=== PATIENT | male | born 1945 | race Caucasian/White ===

== ENCOUNTER 2020-07-31 05:16 | Inpatient (IN) | payer MEDICARE, OTHER ==
[~2020-07-31] VITALS: Ht 175.3 cm; Wt 104.3 kg
[~2020-07-31 05:16] MED LIST: LEVO50TA11 PO; TERA10CA4 PO
[2020-07-31] MEDS ORDERED: ONDANSETRON 4MG INJ ONE (05:27)
[2020-07-31] MEDS ORDERED: MORPHINE 4 MG SYG ONE (05:27)
[2020-07-31 05:55] LABS: BASOPHILS % (AUTO) 0.4 % (0.0-5.0); LYMPHOCYTES % (AUTO) 16.9 % (21.0-51.0); MEAN CORPUSCULAR HEMOGLOBIN 31.7 pg (27.0-33.0); MEAN CORPUSCULAR HGB CONC 35.1 g/dL (32.0-36.0); MEAN CORPUSCULAR VOLUME 90.2 fL (79-99); NEUTROPHILS % (AUTO) 73.2 % (40.0-77.0); PLATELET COUNT (AUTO) 166 K/uL (130-400); RED BLOOD CELL COUNT(AUTO) 5.21 MIL/uL (4.50-6.20); RED CELL DISTRIBUTION WIDTH 11.9 % (11.0-15.5); WHITE BLOOD COUNT (AUTO) 10.7 K/uL (4.8-10.8)
[2020-07-31 06:05] LABS: CREATININE 1.1 mg/dL (0.5-1.5); POTASSIUM 3.6 mmol/L (3.5-5.1)
[2020-07-31] MEDS ORDERED: HYDROMORPHONE 1 MG INJ ONE (06:06)
[2020-07-31 06:10] LABS: ALBUMIN 4.2 g/dL (3.5-5.0); BILIRUBIN,TOTAL 1.3 mg/dL (0.2-1.0)
[2020-07-31 06:17] LABS: INR 1.14 (0.85-1.15); PARTIAL THROMBOPLASTIN TIME 22.1 SEC (26.3-35.5); PROTHROMBIN TIME 11.8 SEC (9.6-11.6)
[2020-07-31] MEDS ORDERED: FAMOTIDINE 20MG VIAL IV ONE (09:25)
[2020-07-31] MEDS ORDERED: PROCHLORPERAZINE 10MG/2ML INJ ONE (09:40)
[2020-07-31 12:15] VITALS: BP_SYST 118; BP_SYST 135; BP_DIAS 48; BP_DIAS 76
[2020-07-31] MEDS: LACTATED RINGERS 1000ML 1,000 ML IV SCH ×3 (15:00→23:45)
[2020-07-31 16:32] VITALS: BP 135/48
[2020-07-31] MEDS: HYDROMORPHONE 1 MG INJ IVP PRN ×2 (18:36→22:45)
[2020-07-31 20:18] VITALS: BP 136/68
[2020-07-31] MEDS: FAMOTIDINE 20MG VIAL IV SCH (20:53)
[2020-07-31 23:26] VITALS: BP 140/76
[2020-08-01] MEDS: ONDANSETRON 4MG INJ IVP PRN (01:41)
[2020-08-01] MEDS ORDERED: HYDROMORPHONE 1 MG INJ IVP PRN (02:15)
[2020-08-01] MEDS ORDERED: KETOROLAC 30MG VIAL (30MG/ML) ONE (02:16)
[2020-08-01] MEDS: KETOROLAC 30MG VIAL (30MG/ML) IV SCH ×4 (02:22→20:43)
[2020-08-01 02:51] LABS: APPEARANCE,URINE Clear (CLEAR); BILIRUBIN,URINE Negative (NEGATIVE); COLOR,URINE Dark Yellow (YELLOW); GLUCOSE, URINE (UA) Negative (NEGATIVE); KETONES,URINE 15 mg/dL (NEGATIVE); LEUKOCYTE ESTERASE ,URINE Negative (NEGATIVE); NITRATE,URINE Negative (NEGATIVE); OCCULT BLOOD,URINE Small (NEGATIVE); PROTEIN,URINE Negative (NEGATIVE)
[2020-08-01 03:09] LABS: BACTERIA,URINE None Seen /HPF (None Seen); MUCUS,URINE Few LPF (None Seen); RBC,URINE 0-1 /HPF (0-1); SQUAMOUS EPITHELIAL CELL,UR Rare /HPF (0-2); WBC,URINE None Seen /HPF (0-1)
[2020-08-01 04:02] VITALS: BP 132/74
[2020-08-01] MEDS: LACTATED RINGERS 1000ML 1,000 ML IV SCH ×2 (04:06→17:44)
[2020-08-01 08:05] VITALS: BP 149/79
[2020-08-01] MEDS: FAMOTIDINE 20MG VIAL IV SCH ×2 (09:46→19:48)
[2020-08-01 11:32] VITALS: BP 124/64
[2020-08-01 16:55] VITALS: BP 131/69
[2020-08-01 20:05] VITALS: BP 122/65
[2020-08-01] MEDS ORDERED: MAGNESIUM 2GM PREMIX 50ML 50 ML IV PRN (21:00)
[2020-08-01] MEDS ORDERED: LIDOCAINE HCL-MPF 1% 2ML VIAL IV PRN (21:00)
[2020-08-01] MEDS ORDERED: POTASSIUM CHLORIDE 20MEQ/100ML 100 ML IV PRN (21:00)
[2020-08-01 23:39] VITALS: BP 131/65
[2020-08-02 03:52] VITALS: BP 140/72
[2020-08-02] MEDS: KETOROLAC 15MG/ML VIAL (15MG/ML) IV PRN ×2 (04:16→19:00)
[2020-08-02] MEDS: LACTATED RINGERS 1000ML 1,000 ML IV SCH ×2 (05:15→19:49)
[2020-08-02 05:41] LABS: HEMATOCRIT 46.8 % (42-54); MEAN CORPUSCULAR HGB CONC 34.8 g/dL (32.0-36.0); MEAN CORPUSCULAR VOLUME 91.9 fL (79-99); RED BLOOD CELL COUNT(AUTO) 5.09 MIL/uL (4.50-6.20); RED CELL DISTRIBUTION WIDTH 11.9 % (11.0-15.5)
[2020-08-02 05:47] LABS: POTASSIUM 4.1 mmol/L (3.5-5.1)
[2020-08-02 07:30] VITALS: BP 139/77
[2020-08-02] MEDS: FAMOTIDINE 20MG VIAL IV SCH ×2 (08:02→20:03)
[2020-08-02 11:00] VITALS: BP 134/73
[2020-08-02 16:00] VITALS: BP 137/85
[2020-08-02 19:00] VITALS: BP 130/71
[2020-08-03] VITALS: BP 129/71
[2020-08-03 04:00] VITALS: BP 137/77
[2020-08-03] MEDS ORDERED: METOCLOPRAMIDE 10 MG/2 ML VIAL ONE (05:38)
[2020-08-03] MEDS: LACTATED RINGERS 1000ML 1,000 ML IV SCH ×3 (05:42→20:09)
[2020-08-03] MEDS: METOCLOPRAMIDE 10 MG/2 ML VIAL IVP SCH ×3 (06:08→18:35)
[2020-08-03] MEDS: KETOROLAC 15MG/ML VIAL (15MG/ML) IV PRN ×2 (07:15→18:33)
[2020-08-03] MEDS: FAMOTIDINE 20MG VIAL IV SCH ×2 (07:15→20:09)
[2020-08-03] MEDS: ONDANSETRON 4MG INJ IVP PRN (07:15)
[2020-08-03 08:15] VITALS: BP 133/76
[2020-08-03 12:00] VITALS: BP 130/73
[2020-08-03] MEDS ORDERED: DIATR MEGLU/DIATRIZOATE SODIUM 30 ML BOTTLE ONE (15:06)
[2020-08-03] MEDS ORDERED: IOHEXOL 350 MG/ML 100ML INFUS..BTL IV ONE (16:27)
[2020-08-03 16:44] VITALS: BP 155/78
[2020-08-03 19:26] VITALS: BP 123/70
[2020-08-04] VITALS (28 sets, daily range): BP systolic 125–157; BP diastolic 65–84
[2020-08-04 05:18] LABS: BASOPHILS % (AUTO) 0.4 % (0.0-5.0); EOSINOPHILS % (AUTO) 3.3 % (0.0-8.0); HEMATOCRIT 44.4 % (42-54); LYMPHOCYTES % (AUTO) 8.4 % (21.0-51.0); MEAN CORPUSCULAR HEMOGLOBIN 30.3 pg (27.0-33.0); MEAN CORPUSCULAR HGB CONC 33.3 g/dL (32.0-36.0); MONOCYTES % (AUTO) 27.5 % (3.0-13.0); NEUTROPHILS % (AUTO) 60.2 % (40.0-77.0); PLATELET COUNT (AUTO) 170 K/uL (130-400); RED BLOOD CELL COUNT(AUTO) 4.88 MIL/uL (4.50-6.20); RED CELL DISTRIBUTION WIDTH 11.9 % (11.0-15.5); WHITE BLOOD COUNT (AUTO) 4.5 K/uL (4.8-10.8)
[2020-08-04 05:27] LABS: POTASSIUM 3.7 mmol/L (3.5-5.1)
[2020-08-04] MEDS: METOCLOPRAMIDE 10 MG/2 ML VIAL IVP SCH ×3 (06:01→17:00)
[2020-08-04] MEDS ORDERED: M.V.I. IV [ADULT] 10 ML in CLINIMIX-E4.25%AA/D5+LYT2000ML 2,000 ML IV SCH ×2 (09:00→20:15)
[2020-08-04] MEDS: FAMOTIDINE 20MG VIAL IV SCH ×2 (09:42→22:27)
[2020-08-04] MEDS: LACTATED RINGERS 1000ML 1,000 ML IV SCH ×2 (12:20→23:53)
[2020-08-04] MEDS ORDERED: LIDOCAINE PF 100MG/5ML (2%) SYRINGE 5ML ONE (15:37)
[2020-08-04] MEDS ORDERED: SUCCINYLCHOLINE CHLORIDE 20 MG/ML 10 ML VIAL ONE (15:37)
[2020-08-04] MEDS ORDERED: ONDANSETRON 4MG INJ ONE (15:38)
[2020-08-04] MEDS ORDERED: PROPOFOL 10 MG/ML 20ML VIAL IV ONE (15:39)
[2020-08-04] MEDS ORDERED: MIDAZOLAM HCL 1 MG/ML 2ML VIAL ONE (15:39)
[2020-08-04] MEDS ORDERED: ROCURONIUM 10MG/1ML SYR 10 MG/ML ML ONE ×2 (15:39→16:24)
[2020-08-04] MEDS: CEFOXITIN SODIUM 2 GM VIAL ONE ×2 (15:44→16:30)
[2020-08-04] MEDS ORDERED: KETAMINE 50MG/ML SYRINGE 50 MG/ML DISP.SYRIN IV ONE (15:59)
[2020-08-04] MEDS ORDERED: FENTANYL CITRATE PF 50 MCG/1 ML 2ML VIAL ONE (16:45)
[2020-08-04] MEDS ORDERED: BUPIVACAINE/PF 0.5% 30ML VIAL ONE (16:55)
[2020-08-04] MEDS ORDERED: SUGAMMADEX SODIUM 200 MG/2 ML VIAL IV ONE (16:58)
[2020-08-04] MEDS ORDERED: MEPERIDINE-PF 25 MG/ML SYG ONE ×2 (17:24→17:36)
[2020-08-04] MEDS: FAT EMULSIONS 20% 250ML 250 ML IV SCH (22:20)
[2020-08-04] MEDS: KETOROLAC 15MG/ML VIAL (15MG/ML) IV PRN (22:20)
[2020-08-05] VITALS: BP 144/72
[2020-08-05 04:00] VITALS: BP 131/76
[2020-08-05 05:16] LABS: HEMATOCRIT 41.8 % (42-54); MEAN CORPUSCULAR HEMOGLOBIN 30.6 pg (27.0-33.0); MEAN CORPUSCULAR HGB CONC 33.5 g/dL (32.0-36.0); MEAN CORPUSCULAR VOLUME 91.5 fL (79-99); RED BLOOD CELL COUNT(AUTO) 4.57 MIL/uL (4.50-6.20); RED CELL DISTRIBUTION WIDTH 11.9 % (11.0-15.5); WHITE BLOOD COUNT (AUTO) 5.7 K/uL (4.8-10.8)
[2020-08-05 05:29] LABS: CREATININE 0.9 mg/dL (0.5-1.5); POTASSIUM 3.9 mmol/L (3.5-5.1)
[2020-08-05] MEDS: METOCLOPRAMIDE 10 MG/2 ML VIAL IVP SCH ×3 (06:04→21:58)
[2020-08-05] MEDS ORDERED: MORPHINE 4 MG SYG IVP PRN (06:45)
[2020-08-05] MEDS ORDERED: ONDANSETRON 4MG INJ IVP PRN (06:45)
[2020-08-05] MEDS ORDERED: ACETAMINOPHEN WITH CODEINE 1 TAB TAB PO PRN (06:45)
[2020-08-05 07:21] VITALS: BP 140/69
[2020-08-05] MEDS: FAMOTIDINE 20MG VIAL IV SCH ×2 (08:39→20:47)
[2020-08-05] MEDS: KETOROLAC 15MG/ML VIAL (15MG/ML) IV PRN ×2 (08:40→20:47)
[2020-08-05 10:59] VITALS: BP 141/74
[2020-08-05] MEDS: LACTATED RINGERS 1000ML 1,000 ML IV SCH (15:00)
[2020-08-05 15:53] VITALS: BP 133/64
[2020-08-05 20:00] VITALS: BP 137/66
[2020-08-06] VITALS (7 sets, daily range): BP systolic 38–149; BP diastolic 68–86
[2020-08-06] MEDS: LACTATED RINGERS 1000ML 1,000 ML IV SCH (01:04)
[2020-08-06] MEDS: METOCLOPRAMIDE 10 MG/2 ML VIAL IVP SCH ×3 (05:45→20:01)
[2020-08-06] MEDS: FAMOTIDINE 20MG VIAL IV SCH ×2 (09:01→20:00)
[2020-08-06] MEDS: ENOXAPARIN SODIUM 30 MG/0.3 ML SQ SCH (09:03)
[2020-08-06] MEDS: FAT EMULSIONS 20% 250ML 250 ML IV SCH (10:00)
[2020-08-06] MEDS: KETOROLAC 15MG/ML VIAL (15MG/ML) IV PRN (13:28)
[2020-08-06] MEDS ORDERED: M.V.I. IV [ADULT] 10 ML in CLINIMIX-E4.25%AA/D5+LYT2000ML 2,000 ML IV SCH (19:00)
[2020-08-07 04:13] VITALS: BP 143/70
[2020-08-07] MEDS: METOCLOPRAMIDE 10 MG/2 ML VIAL IVP SCH ×3 (05:13→20:07)
[2020-08-07 08:00] VITALS: BP 150/78
[2020-08-07] MEDS ORDERED: M.V.I. IV [ADULT] 10 ML in CLINIMIX-E4.25%AA/D5+LYT2000ML 2,000 ML IV SCH (08:30)
[2020-08-07 09:11] LABS: BASOPHILS % (AUTO) 0.4 % (0.0-5.0); EOSINOPHILS % (AUTO) 4.7 % (0.0-8.0); HEMATOCRIT 41.2 % (42-54); LYMPHOCYTES % (AUTO) 6.3 % (21.0-51.0); MEAN CORPUSCULAR HEMOGLOBIN 31.3 pg (27.0-33.0); MEAN CORPUSCULAR HGB CONC 34.5 g/dL (32.0-36.0); MEAN CORPUSCULAR VOLUME 90.9 fL (79-99); MONOCYTES % (AUTO) 13.4 % (3.0-13.0); NEUTROPHILS % (AUTO) 74.8 % (40.0-77.0); PLATELET COUNT (AUTO) 156 K/uL (130-400); RED BLOOD CELL COUNT(AUTO) 4.53 MIL/uL (4.50-6.20); RED CELL DISTRIBUTION WIDTH 11.9 % (11.0-15.5); WHITE BLOOD COUNT (AUTO) 7.6 K/uL (4.8-10.8)
[2020-08-07 09:20] LABS: CREATININE 0.9 mg/dL (0.5-1.5); POTASSIUM 3.6 mmol/L (3.5-5.1)
[2020-08-07 09:25] LABS: ALBUMIN 3.1 g/dL (3.5-5.0); BILIRUBIN,TOTAL 2.2 mg/dL (0.2-1.0); TOTAL PROTEIN, SERUM 6.3 g/dL (6.0-8.3)
[2020-08-07] MEDS: FAMOTIDINE 20MG VIAL IV SCH ×2 (09:54→20:07)
[2020-08-07] MEDS: ENOXAPARIN SODIUM 30 MG/0.3 ML SQ SCH (09:54)
[2020-08-07 12:00] VITALS: BP 152/84
[2020-08-07 16:00] VITALS: BP 144/76
[2020-08-07 20:46] VITALS: BP 148/77
[2020-08-08 00:50] VITALS: BP 166/85
[2020-08-08 04:35] VITALS: BP 156/76
[2020-08-08] MEDS: METOCLOPRAMIDE 10 MG/2 ML VIAL IVP SCH ×3 (05:00→19:49)
[2020-08-08] MEDS: FAMOTIDINE 20MG VIAL IV SCH ×2 (09:13→19:48)
[2020-08-08] MEDS: ENOXAPARIN SODIUM 30 MG/0.3 ML SQ SCH (09:13)
[2020-08-08 09:28] VITALS: BP 144/78
[2020-08-08 13:51] VITALS: BP 116/83
[2020-08-08 17:09] VITALS: BP 154/80
[2020-08-08 20:00] VITALS: BP_SYST 106; BP_SYST 128; BP_DIAS 41; BP_DIAS 74
[2020-08-08] MEDS: TAMSULOSIN HCL 0.4 MG CAP.ER.24H PO SCH ×2 (23:00→23:31)
[2020-08-09] VITALS: BP 140/75
[2020-08-09 04:00] VITALS: BP 137/76
[2020-08-09] MEDS: ENOXAPARIN SODIUM 30 MG/0.3 ML SQ SCH (08:25)
[2020-08-09] MEDS: FAMOTIDINE 20MG VIAL IV SCH (08:28)
[2020-08-09 08:30] VITALS: BP 132/72
[2020-08-09] MEDS ORDERED: LEVOTHYROXINE 50 MCG TABLET PO SCH (09:00)
[2020-08-09 13:51] VITALS: BP 130/75
[2020-08-09 17:43] VITALS: BP 138/82
== END 2020-08-09 18:35 | disposition home or self-care (01) | DRG 331 ==
LOC: EDH 05:16 → EDHIP 10:15 → 3AH 12:15
PROVIDERS: ADMIT Internal Medicine; ATTEND Internal Medicine
PROC: 0D9670Z Drainage of Stomach with Drainage Device, Via Natural or Artificial Opening (ICD-10-PCS; 2020-07-31)
PROC: 0DS80ZZ Reposition Small Intestine, Open Approach (ICD-10-PCS; principal; 2020-08-04 15:53)
DX: K56.2 Volvulus (principal); N40.0 Benign prostatic hyperplasia without lower urinary tract symptoms; M19.90 Unspecified osteoarthritis, unspecified site; E03.9 Hypothyroidism, unspecified; Z96.642 Presence of left artificial hip joint; E66.9 Obesity, unspecified; Z68.34 Body mass index [BMI] 34.0-34.9, adult; Z90.49 Acquired absence of other specified parts of digestive tract
CPT/HCPCS: 36415; 74018; 74176; 74178; 80048; 80053; 81001; 83690; 83735; 84484; 85025; 85027; 85610; 85730; 86850; 86900; 86901; 93005; A4344; G0378; J0330; J0694; J0780; J1170; J1650; J1885; J2001; J2175; J2250; J2270; J2405; J2704; J2765; J3010; J3490; J7120; Q9963; Q9967